=== PATIENT | female | born 1995 | race Caucasian/White ===

== ENCOUNTER → 2018-06-08 | Outpatient (CLI) | payer OTHER ==
[~2018-06-08] MED LIST: BUPIVACAINE/PF 0.25% ONE; EPINEPHRINE 1 MG/ML, 1ML ONE; HEPARIN 1,000 UNITS/ML, 10ML ONE; INDOCYANINE GREEN 25 MG VIAL ONE; No meds per pt.
[2018-06-08 10:39] LABS: BASOPHILS # (AUTO) 0.08 x10^3/uL (0-0.1); BASOPHILS % (AUTO) 1 % (0-1); EOSINOPHILS # (AUTO) 0.05 x10^3/uL (0-0.4); EOSINOPHILS % (AUTO) 1 % (1-7); LYMPHOCYTES # (AUTO) 1.95 x10^3/uL (1-3.4); LYMPHOCYTES % (AUTO) 20 % (22-44); MD NO; MEAN CORPUSCULAR HEMOGLOBIN 28.3 pg (27.0-34.8); MEAN CORPUSCULAR HGB CONC 33.5 g/dL (32.4-35.8); MEAN CORPUSCULAR VOLUME 84.4 fL (80-100); MEAN PLATELET VOLUME 8.8 fL (7.4-10.4); MONOCYTES % (AUTO) 6 % (2-9); NEUTROPHILS # (AUTO) 6.94 x10^3/uL (1.8-6.8); NEUTROPHILS % (AUTO) 72 % (42-75); PLATELET COUNT 314 x10^3/uL (130-400); RED BLOOD COUNT 4.93 x10^6/uL (3.82-5.3); RED CELL DISTRIBUTION WIDTH 13.9 % (9.6-15.2)
[2018-06-08 10:45] LABS: INTERNATIONAL NORMALIZED RATIO 1.05 (0.93-1.1)
[2018-06-08 10:47] LABS: ALANINE AMINOTRANSFERASE 29 U/L (12-78); ALBUMIN 4.2 g/dL (3.4-5.0); ANION GAP 7 mmol/L (5-15); CALCIUM 9.5 mg/dL (8.5-10.1); CHLORIDE 109 mmol/L (98-107); CREATININE 0.72 mg/dL (0.55-1.02)
[2018-06-08 10:51] LABS: ALKALINE PHOSPHATASE 53 U/L (45-117); BILIRUBIN,TOTAL 0.6 mg/dL (0.2-1.0); TOTAL PROTEIN 8.4 g/dL (6.4-8.2)
== END | disposition home or self-care (01) ==
LOC: STAR 09:46
PROVIDERS: ATTEND Specialist
DX: Z01.818 Encounter for other preprocedural examination (principal); N80.9 Endometriosis, unspecified
CPT/HCPCS: 36415; 80053; 84703; 85025; 85610; 85730

== ENCOUNTER 2018-06-12 07:35 | Day surgery (SDC) | payer OTHER ==
[~2018-06-12] VITALS: Ht 160 cm; Wt 68.5 kg
[2018-06-12 07:57] VITALS: BP 132/79
[2018-06-12] MEDS ORDERED: LACTATED RINGERS 1,000 ML IV SCH (07:59)
[2018-06-12] MEDS ORDERED: LIDOCAINE-MPF 1%, 2ML INFIL ONE (08:00)
[2018-06-12 08:28] LABS: HCG UR SG 1.023 (1.003-1.030)
[2018-06-12] MEDS ORDERED: FENTANYL PF 250 MCG/5ML ONE (11:40)
[2018-06-12] MEDS ORDERED: MIDAZOLAM 1 MG/ML, 2ML ONE (11:40)
[2018-06-12] MEDS ORDERED: NEOSTIGMINE 1 MG/ML, 10ML ONE (11:42)
[2018-06-12] MEDS ORDERED: SUCCINYLCHOLINE 20 MG/ML, 10ML ONE (11:42)
[2018-06-12] MEDS ORDERED: DEXAMETHASONE 4 MG/ML, 1ML ONE (11:42)
[2018-06-12] MEDS ORDERED: GLYCOPYRROLATE 0.2MG/1ML, 5ML ONE (11:42)
[2018-06-12] MEDS ORDERED: ROCURONIUM 10MG/ML,5ML ONE (11:42)
[2018-06-12] MEDS ORDERED: LACTATED RINGERS 1,000 ML ONE (11:42)
[2018-06-12] MEDS ORDERED: KETOROLAC 30 MG/1 ML ONE (11:42)
[2018-06-12] MEDS ORDERED: PROPOFOL 10 MG/ML, 20ML ONE (11:42)
[2018-06-12] MEDS ORDERED: CEFAZOLIN 1,000 MG ONE (11:42)
[2018-06-12] MEDS ORDERED: ONDANSETRON 2MG/ML, 2ML ONE (11:42)
[2018-06-12] MEDS ORDERED: ONDANSETRON 2MG/ML, 2ML IV PRN (12:30)
[2018-06-12] MEDS ORDERED: FENTANYL PF 100 MCG/2ML IV PRN (12:30)
[2018-06-12] MEDS ORDERED: HYDROmorphone 2 MG/ML, 1ML IVPush PRN (12:30)
[2018-06-12] MEDS ORDERED: OXYcodone 5 MG/5 ML ORAL.SOL UDC PO PRN (12:30)
[2018-06-12] MEDS ORDERED: ACETAMINOPHEN 325 MG TABLET PO PRN (12:30)
[2018-06-12] MEDS ORDERED: FENTANYL PF 100 MCG/2ML ONE (13:18)
[2018-06-12] MEDS ORDERED: MEPERIDINE/PF 25MG/ML,1ML ONE (13:19)
[2018-06-12] MEDS ORDERED: OXYcodone 5 MG/5 ML ORAL.SOL UDC ONE (13:27)
[2018-06-12] MEDS ORDERED: ACETAMINOPHEN 650 MG/20.3 ML UDC ONE (13:27)
[2018-06-12] MEDS ORDERED: MEPERIDINE/PF 25MG/0.5ML IVPush PRN (13:30)
== END 2018-06-12 18:10 | disposition home or self-care (01) ==
LOC: OUT 07:35
PROVIDERS: ATTEND Specialist
DX: N80.0 Endometriosis of uterus (principal); N94.6 Dysmenorrhea, unspecified; J45.909 Unspecified asthma, uncomplicated; Z98.51 Tubal ligation status; Z98.890 Other specified postprocedural states
CPT/HCPCS: 36415; 58552; 81025; 86850; 86900; 86923; 88305; 88307; J0171; J0330; J0690; J1100; J1644; J1885; J2175; J2250; J2405; J2704; J2710; J3010; J3490; J7120